=== PATIENT | female | born 1955 | race Caucasian/White ===

== ENCOUNTER 2019-07-17 13:42 | Outpatient (CLI) | payer BC, SELFPAY ==
--- NOTE | ~2019-07-17 | XR_ITS ---
XR abdomen/kub 1V DATE: 07/17/2019 14:20 INDICATION: Gross hematuria TECHNIQUE: AP projection, 2 views COMPARISON: Noncontrast CT abdomen pelvis FINDINGS: Calcifications overlie the left renal silhouette. A solitary right renal calculus noted on CT examination today is not readily evident radiographically. There is abdominal aortic and and iliofemoral arterial calcification. The psoas shadows are intact. No visceromegaly is evident. The bowel gas pattern is nonspecific, with out evidence of obstruction. There is a prominent of fecal material in the right colon. IMPRESSION: Nonspecific abdomen Reviewed, dictated and finalized at Location A. Reviewed, dictated and finalized at location A. IMPRESSION: Nonspecific abdomen
--- NOTE | ~2019-07-17 | CT_ITS ---
EXAMINATION: CT abdomen pelvis wo/w con DATE: 07/17/2019 14:50 INDICATION: Gross hematuria TECHNIQUE: Computed tomography (CT) of the abdomen and pelvis was performed without and subsequently with 130 cc Omnipaque 350 intravenous contrast. Automated exposure control and iterative reconstructi on technique were employed. Exam dose: 551.89 mGy-cm total exam DLP. COMPARISON: 07/17/2019 KUB 08/09/2005 CT abdomen pelvis FINDINGS: The lung bases are clear. No pericardial or pleural effusion. Heart size is within normal r rachana. 1 cm and 5 mm left hepatic cysts. The liver is otherwise unremarkable. No bile duct dilatation. The g allbladder is unremarkable. No pancreatic mass lesion, calcification or ductal dilatation. Normal spl enic size. Normal morphology of the adrenal glands. Approximately 1.9 cm left renal cyst at least one additional very small left renal cyst is suggested. There are at least several probable right renal cysts measuring up to 6.5 mm. There is an approximately 3.8 cm nonobstructing mid right renal calculus. There are numerous left renal calculi, the largest measuring up to approximately 5.5 mm maximal dimen eva on axial views. No ureteral calculi or hydroureteronephrosis. The urinary bladder, uterus and adnexal areas are unremarkable. Normal appendix. Diverticulosis of the colon, no CT evidence of diverticulitis. No bowel obstruction or intraperitoneal free air. There is extensive calcification of the abdominal aorta and iliac and femoral arteries but no aneurys m. No intraperitoneal or retroperitoneal or pelvic mass lesion or adenopathy or ascites. Small fat-containing umbilical hernia. Diffuse osteopenia. There is degenerative change at the apophyseal joints with associated grade 1 anterolisthesis at L4-5 . Severe degenerative disc disease at L5-S1. IMPRESSION: Bilateral nephrolithiasis Hepatic and renal cysts Diverticulosis of the colon Reviewed, dictated and finalized at Location A. Reviewed, dictated and finalized at location A.
[2019-07-17 14:30] LABS: Estimated Glomerular Filt Rate > 60
== END 2019-07-17 13:43 | disposition home or self-care (01) ==
PROVIDERS: PCP Family Medicine; Visit Provider Urology
DX: R31.0 Gross hematuria (principal); N20.0 Calculus of kidney; N28.1 Cyst of kidney, acquired; K76.89 Other specified diseases of liver; K57.90 Diverticulosis of intestine, part unspecified, without perforation or abscess without bleeding
CPT/HCPCS: 36415; 74018; 74178; Q9967

== ENCOUNTER 2019-09-22 09:23 | Outpatient (CLI) | payer BC, SELFPAY ==
--- NOTE | ~2019-09-22 | XR_ITS ---
XR abdomen/kub 1V DATE: 09/22/2019 09:42 INDICATION: Calcium kidney stone follow-up TECHNIQUE: AP projection, 2 views COMPARISON: 07/17/2019 CT abdomen pelvis without and subsequently with IV contrast material 07/17/2019 KUB FINDINGS: There is no significant change of numerous calcifications scattered throughout left kidney. No definite right renal calcified stone is confirmed on this examination. Noncontrast CT abdomen pel vis examination would be more sensitive for detection of urinary tract calculi. The psoas shadows are intact. No visceromegaly is evident. There is no evidence of bowel obstruction. There is degenerative change of the lower thoracic and lumbar spine. Abdominal aortic and iliac and femoral artery calcifications. IMPRESSION: Numerous left renal calcified calculi are again noted. Reviewed, dictated and finalized at Location A. Reviewed, dictated and finalized at location A.
== END 2019-09-22 09:24 | disposition home or self-care (01) ==
PROVIDERS: PCP Family Medicine; Visit Provider Urology
DX: N20.0 Calculus of kidney (principal)
CPT/HCPCS: 74018

== ENCOUNTER 2020-03-27 08:13 | Outpatient (CLI) | payer BC, SELFPAY ==
--- NOTE | ~2020-03-27 | XR_ITS ---
XR abdomen/kub 1V 03/27/2020 08:26 Indication: Kidney stones Procedure: KUB Comparison: 09/22/2019 Findings: There are bilateral renal stones. There are vascular calcifications in the pelvis. Bowel ga s pattern is nonobstructive. Moderate colonic fecal loading. Moderate lumbar spondylosis. No acute os seous abnormality. Impression: 1: Bilateral nephrolithiasis. Reviewed, dictated and finalized at location B. 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
== END 2020-03-27 08:14 | disposition home or self-care (01) ==
LOC: ANHIMG 08:16
PROVIDERS: Visit Provider Urology
DX: N20.0 Calculus of kidney (principal); M47.816 Spondylosis without myelopathy or radiculopathy, lumbar region
CPT/HCPCS: 74018

== ENCOUNTER 2020-10-05 11:13 | Outpatient (CLI) | payer BC, SELFPAY ==
[2020-10-05 11:59] LABS: Alanine Aminotransferase 12 U/L (4-35); Albumin Level 4.3 g/dL (3.5-5.1); Alkaline Phosphatase 76 U/L (38-126); Anion Gap 6 mmol/L (8-16); Aspartate Amino Transferase 17 U/L (14-36); Bilirubin,Total 0.6 mg/dL (0.2-1.3); Blood Urea Nitrogen 11 mg/dL (7-17); Calcium 9.5 mg/dL (8.4-10.2); Carbon Dioxide 29 mmol/L (22-30); Chloride 104 mmol/L (98-107); Cholesterol 191 mg/dL (0-200); Estimated Glomerular Filt Rate > 60; Glucose 99 mg/dL (65-110); HDL Direct 44 mg/dL; Potassium 4.3 mmol/L (3.4-5.0); Sodium 139 mmol/L (137-145); Triglycerides 126 mg/dL (<150)
[2020-10-05 12:10] LABS: LDL Cholesterol Direct 94 mg/dL
== END 2020-10-05 11:14 | disposition home or self-care (01) ==
PROVIDERS: PCP Family Medicine; Visit Provider Physician Assistant
DX: E78.5 Hyperlipidemia, unspecified (principal); I10 Essential (primary) hypertension
CPT/HCPCS: 36415; 80053; 80061

== ENCOUNTER 2021-02-27 12:00 | Outpatient (CLI) | payer BC, SELFPAY ==
--- NOTE | ~2021-02-27 | CT_ITS ---
EXAMINATION:CT lung screening DATE: 02/27/2021 12:10 INDICATION: Personal history of nicotine dependence. Current smoker with 36 pack year history. TECHNIQUE: Computed tomography (CT) of the chest was performed without intravenous contrast. Automate d exposure control and iterative reconstruction technique were employed. The dose-length product (DLP ) was 65.40 mGy-cm. COMPARISON: Chest CT 08/09/2005 FINDINGS: There is mild scarring at the lung apices. There is moderate emphysema. There is an 11 mm p redominantly solid nodule in right upper lobe. There is a 13 mm part solid nodule with 5 mm solid com ponent in left lower lobe. There is a 19 mm cavitary nodule with mildly thickened wall in left upper lobe. There is an 8 mm part solid nodule in right upper lobe. There is a 15 mm nonsolid nodule in lef t lower lobe. No pleural effusion. The heart size is normal. There are coronary artery calcifications . No pericardial effusion. There are multiple stones in left kidney measuring up to 3 mm. There is mi ld thoracic spondylosis. IMPRESSION: 1. Lung-RADS category 4A: Probably suspicious. Noncontrast low-dose chest CT is recommended in 3 leo hs. Reviewed, dictated and finalized at location B. BAG FINISHER IMPRESSION: 1. Lung-RADS category 4A: Probably suspicious. Noncontrast low-dose chest CT is recommended in 3 months.
== END 2021-02-27 12:01 | disposition home or self-care (01) ==
LOC: ANHIMG 12:01
PROVIDERS: PCP Family Medicine; Visit Provider Physician Assistant
DX: Z87.891 Personal history of nicotine dependence (principal); R91.8 Other nonspecific abnormal finding of lung field
CPT/HCPCS: 71271

== ENCOUNTER 2021-03-27 07:57 | Outpatient (CLI) | payer BC, SELFPAY ==
--- NOTE | ~2021-03-27 | XR_ITS ---
EXAMINATION: XR abdomen/kub 1V DATE: 03/27/2021 08:10 INDICATION: Calcium kidney stone, left side. TECHNIQUE: A supine view of the abdomen was obtained. COMPARISON: CT abdomen and pelvis 07/17/2019, abdomen radiographs 03/27/2020 FINDINGS: There are no dilated loops of bowel. There is a moderate volume of stool in the colon. Ther e are greater than 10 stones in left kidney measuring up to 4 mm. IMPRESSION: 1. Left kidney stones. Reviewed, dictated and finalized at location E. 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 Left kidney stones.
== END 2021-03-27 07:58 | disposition home or self-care (01) ==
LOC: ANHIMG 08:00
PROVIDERS: PCP Family Medicine; Visit Provider Urology
DX: N20.0 Calculus of kidney (principal)
CPT/HCPCS: 74018

== ENCOUNTER 2021-04-29 08:36 | Outpatient (CLI) | payer BC, SELFPAY ==
--- NOTE | ~2021-04-29 | CT_ITS ---
EXAMINATION: CT abdomen pelvis wo/w con DATE: 04/29/2021 09:32 INDICATION: Gross hematuria. TECHNIQUE: Computed tomography (CT) of the abdomen and pelvis was performed without and with intraven ous contrast using a total of 130 mL Omnipaque-350 intravenous contrast with a double-bolus technique for simultaneous opacification of the renal parenchyma and renal collecting system. Automated exposu re control and iterative reconstruction technique were employed. The dose-length product was 663.86 m Gy-cm. COMPARISON: CT abdomen and pelvis 07/17/2019 FINDINGS: The visualized portions of the lung bases demonstrate mild atelectasis. No pleural effusion. The hear t size is normal. No pericardial effusion. There are coronary artery calcifications. The liver, gallb ladder, spleen, pancreas, and adrenal glands are normal. There is a 5 mm stone in right kidney. There are greater than 10 stones in left kidney measuring up to 7 mm. The right ureter is not well opacifi ed distally, but is normal. Left ureter is well opacified and is normal. The bladder is normal. There is diverticulosis of the colon without evidence of diverticulitis. There are no dilated loops of bow el. The appendix is normal. There is a left inguinal hernia containing fat. There are no pathological ly enlarged lymph nodes. There is no free intraperitoneal fluid. There is a chronic compression fract ure of L4. There is moderate lumbar spondylosis. IMPRESSION: 1. Bilateral nonobstructing kidney stones. Reviewed, dictated and finalized at location A.
[2021-04-29 09:13] LABS: Estimated Glomerular Filt Rate 56
== END 2021-04-29 08:37 | disposition home or self-care (01) ==
LOC: ANHIMG 08:37
PROVIDERS: PCP Family Medicine; Visit Provider Nurse Practitioner Adult Health
DX: R31.0 Gross hematuria (principal); N20.0 Calculus of kidney
CPT/HCPCS: 74178; Q9967

== ENCOUNTER 2021-05-06 13:41 | Outpatient (CLI) | payer BC, SELFPAY ==
--- NOTE | 2021-05-06 13:48 | ECG_ITS ---
Measurements Intervals [place] Rate: 58 P: 77 CO: 142 QRS: 40 QRSD: 82 T: 69 QT: 405 QTc: 400 Interpretive Statements SINUS BRADYCARDIA POSSIBLE LEFT ATRIAL ENLARGEMENT [-0.1mV P WAVE IN V1/V2] NONSPECIFIC ST ABNORMALITY ABNORMAL ECG NO PREVIOUS ECG AVAILABLE FOR COMPARISON Electronically Signed On 05-06-2021 17:12:38 CDT by Daryn Chris M.D.
[2021-05-06 14:42] LABS: INR 1.1; Prothrombin Time 13.6 Seconds (11.1-14.7)
[2021-05-06 14:43] LABS: Partial Thromboplastin Time 30.3 SECONDS (22.3-36.8)
== END 2021-05-06 13:42 | disposition home or self-care (01) ==
PROVIDERS: Urology; PCP Family Medicine; Visit Provider Urology
DX: Z01.818 Encounter for other preprocedural examination (principal); N20.0 Calculus of kidney; I10 Essential (primary) hypertension; R00.1 Bradycardia, unspecified; Z51.81 Encounter for therapeutic drug level monitoring; Z79.899 Other long term (current) drug therapy
CPT/HCPCS: 36415; 85610; 85730; 87086; 93005

== ENCOUNTER 2021-05-09 02:08 | Day surgery (SDC) | payer BC, SELFPAY ==
[2021-05-02 09:37] VITALS: BMI 22.3
--- NOTE | 2021-05-02 09:45 | PC.NURSE ---
Report to the Outpatient Waiting Room, entrance under the green pavilion located off [facility], at time 0630_ on date _05/09/21 . OR Time: . - You and your visitor will be asked a series of questions to screen for COVID 19 for your protection. - A mask is required within the hospital. Preoperative COVID Testing Requirements: No COVID Test needed if: (proof is required; if not received patient will have Rapid Test prior to entry) - Patient has received COVID Vaccine at least 14 days prior to procedure date or - Patient has positive COVID test result within last 90 days of surgery date. COVID Test needed if above criteria is not met If not COVID vaccinated a COVID test must be conducted within 72 hours of surgery and patient is asked to isolate self from time of testing until procedure. You will go to the [facility] for your COVID testing. The [facility] is located at the corner of [address] [facility]. You will only be called if COVID results are positive and your surgeon may reschedule your elective surgery date. Patients may have clear liquids (water, carbonated beverages, clear teas, apple juice) until 3 hours prior to surgery with a maximum of 20 ounces. - No food from midnight until time of surgery - Infants may have breast milk until 4 hours before surgery, infant formula 6 hours prior to surgery. - Children will be allowed to drink immediately following surgery. If applicable, please bring a bottle or sippy cup to assist with drinking. Juice, water, soda, and popsicles are readily available. For infants on formula, please bring formula the day of surgery. Pacifiers are allowed. Take the following medications with a SIP of water the morning of surgery: _DILTIAZEM Medications to discontinue per physician ___XARELTO Date to take last dose____05/02/21 Please no make-up, nail northern ir[place], hairspray, perfume, deodorant, or body powder the day of surgery. No jewelry (including any body piercings) or valuables the day of surgery, leave them at home. Please take a shower or bath the night before, or the morning of, surgery with an antibacterial soap. Wear comfortable, loose fitting clothing. Children are encouraged to wear pajamas. - Jewelry must be removed prior to entering the operating room. Rings and piercings that are not removed may be cut off. - The hospital will not accept responsibility for valuables. - Please leave all valuables, including medications, at home the day of surgery. If you are going home after surgery, a licensed batch mixing truck driver must drive you home. - NO public transportation without another adult. - We recommend that an adult stay with you for 24 hours following discharge. - We also recommend that you do not drive, make important decision, drink alcoholic beverages, or take any drugs that were not prescribed by your health care provider for at least 24 hours after your discharge time. For Pediatric surgeries, we recommend two adults accompany the child home (only one inside the building at this time). One visitor will be allowed to accompany the patient into the hospital. Patients visitor will be instructed to remain with patient at all times or leave the building. We will allow the visitor to come back to the postoperative area when patient is ready. Follow any additional instructions given to you from your surgeon. Telephone instructions given to ____PARRES and asked if any additional questions and then verbalized understanding. Patient advised to call surgeon office or pre surgery nurse liaison [phone] if any additional questions.
[2021-05-09] VITALS (8 sets, daily range): BP systolic 149–186; BP diastolic 74–104; PULSE 58–66; RESP 14–20; TEMP 36.2–36.4; O2SAT 93–100
--- NOTE | ~2021-05-09 | XR_ITS ---
XR abdomen/kub 1V DATE: 05/09/2021 06:31 INDICATION: Nephrolithiasis. Lithotripsy. TECHNIQUE: Supine AP views of the abdomen and pelvis COMPARISON: 04/27/2021 CT abdomen pelvis FINDINGS: An approximately 4 mm calcified calculus overlies the mid right kidney. There are numerous small stones scattered throughout the left kidney. No apparent ureteral calcified calculus is noted. No evidence of bowel obstruction or intraperitoneal free air. No visceromegaly is evident. There is calcification of the abdominal aorta and iliac arteries. The lung bases are clear. Heart size appears normal. IMPRESSION: Bilateral nephrolithiasis, much more prominent on the left Reviewed, dictated and finalized at Location A. Reviewed, dictated and finalized at location A.
[2021-05-09] MEDS: LACTATED RINGERS 1,000 ML 30 ML IV CONT (07:00)
--- NOTE | 2021-05-09 07:26 | WPDHPUPDATE1 ---
History and Physical Update Update Date/Time: 05/09/21 07:26 History and Physical has been reviewed, including an updated exam of the patient. There are NO changes in the patient's condition. Risks, benefits, and alternatives have been discussed and questions answered. Patient agrees to proceed with procedure. Proceed with cysto, left reanl eswl.
--- NOTE | 2021-05-09 07:57 | WPDANESEPPF ---
Anes - Initial Pre Proc Eval Procedure: Operation Date: 05/09/21 08:30 Proposed Procedures p Left Extracorporeal Shock Wave Lithotripsy, - Roge Rosa MD s Diagnostic Cystoscopy - Roge Rosa MD Date/Time: 05/09/21 07:57 Surgeon: Roge Rosa MD Pre Op Diagnosis: bilat renal stones Patient Data Age: 65 Gender: F Height: 1.64 m Weight: 59.2 kg Last Vital Signs Temp 36.4 C 05/09/21 07:30 Pulse 66 05/09/21 07:30 Resp 16 05/09/21 07:30 BP 149/80 H 05/09/21 07:30 Pulse Ox 97 05/09/21 07:30 Allergies Allergy/AdvReac Type Severity Reaction Status Date / Time No Known Allergies Allergy Mild Verified 05/09/21 07:34 Home Medications Medication Instructions Recorded Confirmed Type diltiazem HCl 240 mg 240 mg PO DAILY 04/16/20 05/09/21 History capsule,extended release 24 hr losartan 100 mg tablet 100 mg PO DAILY 08/16/20 05/09/21 History atorvastatin 10 mg tablet 10 mg PO DAILY #90 tablet 11/14/20 05/09/21 Rx albuterol sulfate 90 mcg/actuation 1 inh INHALATION Q4H PRN #8.5 g 02/24/21 05/09/21 Rx aerosol inhaler nebivolol [Bystolic] 10 mg PO HS 05/02/21 05/09/21 History rivaroxaban 20 mg tablet 20 mg PO DAILY #30 tablet 05/04/21 05/09/21 Rx Patient hx anesthesia problems: none Family hx anesthesia problems: none Results Review: All pre-operative results and documents have been reviewed as part of the pre-operative evaluation. [facility] Past Medical History Medical History CAD (coronary artery disease) Hypertension Kidney stones Myocardial infarction Normal colonoscopy (~2019) Family History Family History Father Alcoholism Daughter Hypertension Son Hypertension Social History Social History Smoking packs per day: 1 Smoking cigarettes per day: 20.0 Years smoked: 40 Smoking pack-years: 40.00 Smoking status: Current every day smoker Tobacco type: cigarettes Alcohol intake: current Alcohol use details: 2 PER YEAR Substance use: former Substance use type: does not use Living arrangements: with family Spiritual care concerns: No Agree to blood products: Yes Anes - Eval Final PreProcedure Day of Procedure 05/09/21 07:57 Patient weight: normal Heart: regular rate and rhythm Lungs: decreased breath sounds Airway: Mallampati scale class II Neurological: alert and oriented Last oral intake: >/= 8 hours ASA classification: III Emergent: no Anesthetic plan: proceed Anesthesia type and monitoring: general LMA and standard monitoring Results Review: All pre-operative results and documents have been reviewed as part of the pre-operative evaluation. Informed Consent: The patient's anesthetic plan and its attendant risks and benefits were discussed with the patient/family/POA. Questions were solicited and answers provided to the satisfaction of the patient/family/POA.
[2021-05-09] MEDS: ceFAZolin 2 GM/D5W 50 ML 2 GM/50 ML BAG IVPB (08:25)
[2021-05-09] MEDS: LIDOCAINE HCL 2% GEL UROJET 10 ML PKG MUCOUS MEM (08:34)
--- NOTE | 2021-05-09 09:01 | W.PM.PROC2 ---
Procedure Note - Detailed Date of Procedure 05/09/21 Pre-op Diagnosis bilat renal stones, hematuria Post-op Diagnosis Same Procedure Performed Flexible cystoscopy, ESWL left renal calculi Surgeon Roge Rosa MD Anesthesia General Description of Procedure Patient is taken the operative suite correctly identified. Once anesthesia was obtained she was frog-legged and prepped and draped usual sterile fashion. Sixteen Luxembourger scope inserted into the urethra. There were no tumors noted. Both ureteral orifices normal anatomic position. Scope was removed. 2% viscous lidocaine was inserted urethra. Patient was then reposition. Patient has a cluster of stones in the left kidney. We started out with the lower pole area. Two and half thousand shocks were given to the various stones in the lower pole. Patient tolerated procedure well without any complications taken recovery stable condition. She will follow up in about 10 days with a KUB. Drains No Packing No Pathology None sent Complications No immediate complications Condition Stable Disposition PACU
--- NOTE | 2021-05-09 11:14 | SUR.PHASEII ---
DR RM WAS CALLED ABOUT RESUMING XERELTO. RESTART ON Wednesday05/11/21.
== END 2021-05-09 10:53 | disposition home or self-care (01) ==
PROVIDERS: PCP Family Medicine; Visit Provider Urology
PROC: (CPT 50590; principal; 2021-05-09 08:30)
PROC: 0TJB8ZZ Inspection of Bladder, Via Natural or Artificial Opening Endoscopic (ICD-10-PCS; CPT 52000; 2021-05-09 08:30)
DX: N20.0 Calculus of kidney (principal); R31.9 Hematuria, unspecified; I10 Essential (primary) hypertension; I25.10 Atherosclerotic heart disease of native coronary artery without angina pectoris; I25.2 Old myocardial infarction; F17.210 Nicotine dependence, cigarettes, uncomplicated; Z79.01 Long term (current) use of anticoagulants; Z79.51 Long term (current) use of inhaled steroids
CPT/HCPCS: 50590; 52000; 74018; A9270; J0690; J1100; J2405; J2704; J7120

== ENCOUNTER 2021-05-28 12:49 | Outpatient (CLI) | payer BC, SELFPAY ==
--- NOTE | ~2021-05-28 | XR_ITS ---
EXAM: XR abdomen/kub 1V HISTORY: BILATERAL RENAL STONES COMPARISON: None available FINDINGS: Clear lung bases. Normal bowel gas pattern. No organomegaly. The calcifications over the k idneys are unchanged given changes in positioning. Regional bones and soft tissues normal for age. IMPRESSION: Stable bilateral nephrolithiasis. Reviewed, dictated and finalized at location K.
--- NOTE | ~2021-05-28 | CT_ITS ---
EXAMINATION: CT diagnostic chest wo con EXAM DATE: 05/28/2021 13:13 INDICATION: J98.4 - Other disorders of lung. Spell RADS category 4A CT in February. TECHNIQUE: Spiral CT of the chest without contrast. Axial, coronal and sagittal images of the chest were reviewed. Coronal maximum intensity pixel images of chest reviewed. The dose-length product ( DLP) for this examination was 147.64 mGy-cm. The exposure was tailored according to patient size (au to mA exposure control), and iterative reconstruction (ASIR) was used as additional dose reduction te chnique. Comparison is made to prior examination from 02/27/2021. FINDINGS: There is moderate emphysema and hyperinflation. Previously described bilateral upper lobe and left lower lobe nodules are unchanged in size, largest in the left upper lobe with cavitation cesar suring about 18 mm. Stability favors postinfectious or postinflammatory etiology and a longer interva l follow-up is recommended. There are no new pulmonary nodules. Tracheobronchial tree is patent. There is no mediastinal, hilar or axillary lymphadenopathy. Ther e are no pleural or pericardial effusions. There is no pneumothorax. Heart normal in size. Ther e is moderate coronary arterial calcification, arterial sclerosis. Scattered left calyceal stones. T here is thoracic spondylosis without osteoblastic or osteolytic lesions identified. IMPRESSION: Lung-RADS category 2, benign appearance or behavior (<1% chance of malignancy); recommend continued LDCT screening in 1 year. Reviewed, dictated and finalized at location B.
[2021-05-28 13:30] VITALS: PULSE 60; O2SAT 95
[2021-05-28 13:33] VITALS: PULSE 92; O2SAT 93
[2021-05-28 13:45] VITALS: PULSE 93; O2SAT 94
--- NOTE | 2021-05-28 13:48 | HOMEO2EVAL ---
Evaluation was performed at [facility] Home Oxygen Evaluation RC: Home Oxygen (O2) Evaluation Start: 05/28/21 13:46 Freq: Status: Active Protocol: RPE Activity Type Activity Date Activity User E-Sign Co-Sign Detail Recorded Client Recorded Date Recorded By Document 05/28/21 13:30 AZAR [email or web address] 05/28/21 13:48 AZRA Document 05/28/21 13:33 AZAR [email or web address] 05/28/21 13:48 AZAR Document 05/28/21 13:45 AZAR [email or web address] 05/28/21 13:48 AZAR 05/28/21 05/28/21 05/28/21 13:30 13:33 13:45 Home O2 Evaluation Test Phase Resting Exercise Resting Oxygen Delivery Room Air Room Air Room Air Pulse Oximetry (90-100 %) 95 93 94 Pulse Rate (60-100 beats/min) 60 92 93 Ambulation Distance (feet) 800 Ambulation Distance (meters) 243.82 Home Oxygen Evaluation Comments NO HOME O2 NEEDED Treatment Charges O2 Evaluation - Inpatient
--- NOTE | 2021-05-28 13:49 | PCRCNOTE ---
HOME O2 EVAL FAXED TO OFFICE STAFF
--- NOTE | 2021-05-28 15:19 | WPDPFTINT ---
PFT Procedure Performed PFT Procedure Performed Spirometry with Pre/Post Bronchodilator Plethysmography (Lung Vol) Diffusing Cap (DLCO) Flow Vol Loop PFT Interpretation This is a pulmonary function test with pre and post-bronchodilator spirometry, plethysmography and diffusing capacity. The test was performed and results interpreted in accordance with the 2019 and 2005 ATS/ERS Task Force guidelines respectively using the Global Lung Function Initiative-2012 reference equations. Patient demonstrated good effort and cooperation. Reproducibility criteria were met. The quality of the pre bronchodilator spirometry maneuver was Grade A and post bronchodilator spirometry maneuver was Grade A. Findings: Spirometry:There is decreased maximal expiratory airflow at all lung volumes with concave expiratory flow tracing. The contour the inspiratory flow tracing is normal. The pre bronchodilator FVC is 2.85 L, 90% predicted. The pre bronchodilator FEV1 is 1.21 L, 49% predicted. The pre bronchodilator FEV1: FVC ratio is 42%. The post bronchodilator FVC is 3.10 L, representing a 9% increase. The post bronchodilator FEV1 is 1.38 L, representing 170 mL increase which corresponds to a 14% increase. The post bronchodilator FEV1: FVC ratio is 45%. Plethysmography: The total lung capacity is 7.58, 146% predicted. The functional residual capacity is 5.70 L, 193% predicted. The residual volume is 4.67 L, 223% predicted. Diffusing capacity: The diffusing capacity unadjusted for hemoglobin and carboxyhemoglobin is 11.0, 51% predicted. The diffusing capacity adjusted for alveolar volume is 2.69, 62% predicted. Impression: There is a severe obstructive abnormality without significant improvement after inhaling a single dose of albuterol As the absolute increase in FEV1 was less than 200 mL. The increase in residual volume is consistent with air trapping from an obstructive abnormality. Hyperinflation is present is demonstrated by the increase in functional residual capacity and total lung capacity and is consistent with an obstructive abnormality. The diffusing capacity unadjusted for hemoglobin and carboxyhemoglobin is moderately decreased and remains mildly decreased when adjusted for alveolar volume. There are no prior studies for comparison
== END 2021-05-28 12:50 | disposition home or self-care (01) ==
PROVIDERS: PCP Family Medicine; Visit Provider Internal Medicine Pulmonary Disease
DX: R06.02 Shortness of breath (principal); J98.4 Other disorders of lung; N20.0 Calculus of kidney; R94.2 Abnormal results of pulmonary function studies
CPT/HCPCS: 71250; 74018; 94060; 94618; 94726; 94729

== ENCOUNTER 2021-06-12 14:40 | Outpatient (CLI) | payer BC, SELFPAY ==
[2021-06-12 15:15] LABS: Creatine Kinase 52 U/L (30-135)
[2021-06-12 16:10] LABS: Rheumatoid Factor < 8.6 IU/ML (<12)
[2021-06-14 15:06] LABS: NIL 0.01 IU/mL; Quantiferon TB Plus, 1T NEGATIVE (NEGATIVE); TB1-NIL 0.01 IU/mL
[2021-06-16 17:46] LABS: ANA Cascade Screen Negative (Negative)
[2021-06-17 12:13] LABS: Anti Cyclic Citrullinated Pept <16 Units (<20)
[2021-06-20 14:13] LABS: ANCA Screen Negative (Negative)
== END 2021-06-12 14:41 | disposition home or self-care (01) ==
LOC: ANHLAB 14:42
PROVIDERS: PCP Family Medicine; Visit Provider Internal Medicine Pulmonary Disease
DX: J98.4 Other disorders of lung (principal); J44.9 Chronic obstructive pulmonary disease, unspecified
CPT/HCPCS: 36415; 82085; 82550; 86036; 86038; 86200; 86331; 86430; 86480; 86606; 86609

== ENCOUNTER 2021-11-27 13:21 | Outpatient (CLI) | payer BC, SELFPAY ==
--- NOTE | ~2021-11-27 | CT_ITS ---
EXAMINATION: CT diagnostic chest wo con DATE: 11/27/2021 13:51 INDICATION: Cavitary lesion of the lung TECHNIQUE: Computed tomography (CT) of the chest was performed without intravenous contrast. The dose -length product (DLP) was 67.08 mGy-cm. Automated exposure control and iterative reconstruction techn ique were employed. COMPARISON: 05/28/2021, 02/27/2021 FINDINGS: There is moderate emphysema. There is a stable 11 mm nodule of the right upper lobe which i s predominantly solid. There is a stable subsolid 11 mm nodule in the medial aspect of the right uppe r lobe on image 66. There is 1.9 cm cavitary nodule of the left lower lobe. There is a 1.9 cm groundg lass nodule of the left lower lobe. There is an approximately 2.6 cm cystic nodule with thin peripher al solid component in the left upper lobe which is not significantly changed. No pleural effusion or pneumothorax. No pathologically enlarged thoracic lymph nodes are identified. The heart size is jo l. Calcified coronary artery atherosclerosis is noted. Nonobstructing stones are present in the left kidney. There is mild thoracic spondylosis. IMPRESSION: 1. Lung-RADS category 2: Benign appearance or behavior. Continue annual screening with noncontrast lo w-dose chest CT in 12 months. Reviewed, dictated and finalized at location F. IMPRESSION: 1. Lung-RADS category 2: Benign appearance or behavior. Continue annual screeni ng with noncontrast low-dose chest CT in 12 months.
== END 2021-11-27 13:22 | disposition home or self-care (01) ==
PROVIDERS: PCP Family Medicine; Visit Provider Internal Medicine Pulmonary Disease
DX: J98.4 Other disorders of lung (principal); R91.8 Other nonspecific abnormal finding of lung field
CPT/HCPCS: 71250

== ENCOUNTER 2022-03-19 12:46 | Outpatient (CLI) | payer BC, SELFPAY ==
[2022-03-25 04:47] LABS: Alpha-1-Antitrypsin, QN 171 mg/dL (83-199)
== END 2022-03-19 12:47 | disposition home or self-care (01) ==
LOC: ANHLAB 12:47
PROVIDERS: PCP Family Medicine; Visit Provider Nurse Practitioner Family
DX: Z14.8 Genetic carrier of other disease (principal)
CPT/HCPCS: 36415; 82103

== ENCOUNTER 2022-11-30 10:44 | Outpatient (CLI) | payer BC, SELFPAY ==
--- NOTE | ~2022-11-30 | CT_ITS ---
CT Scan of the Chest without Contrast: Clinical Indication: Lung cancer screening, personal history of nicotine dependence Technique: Contiguous sections were acquired throughout the chest without intravenous contrast. Dose reduction technique was used on this scan by utilizing automated exposure control and iterative recon struction technique. The dose-length product (DLP) was 68.85 mGy-cm. COMPARISON: 11/27/2021, 02/27/2021 Findings: There is no evidence of any significant mediastinal, hilar or axillary lymphadenopathy. Coronary angel ry calcification are present. There is no evidence of pleural or pericardial effusion. Irregular semisolid, bubbly lesion at the peripheral right lung apex is increased in size from prior exam, now measuring up to approximately 2.4 cm in maximum diameter. Semisolid nodule in the anteromed ial, inferior right upper lobe is similar to prior exam, measuring 1 cm in diameter (axial image 71). 2.2 cm cavitary, semisolid nodule in the left upper lobe near the perihilar region is similar to dominic or exam. Probable subtle groundglass and cavitary lesions in the left lower lobe are unchanged. Small groundglass lesion in the superior segment left lower lobe is unchanged. There is moderate emphysema . Images through the upper abdomen reveal no abnormalities. Impression: BI-RADS 4A: Suspicious. 3 month follow-up CT advised, given increase in size of right apical lesion. Multiple groundglass, cavitary, and/or semisolid lesions in the lungs, as detailed above. Lesion at t he peripheral right lung apex increase in size, remaining lesions are essentially unchanged. Findings could reflect multifocal VIRGIE. Reviewed, dictated and finalized at location M. Impression: BI-RADS 4A: Suspicious. 3 month follow-up CT advised, given increase in size of right apical lesion. Multiple groundglass, cavitary, and/or semisolid lesions in the lungs, as detai led above. Lesion at the peripheral right lung apex increase in size, remaining lesions are essentially unchanged. Findings could reflect multifocal VIRGIE.
== END 2022-11-30 10:45 | disposition home or self-care (01) ==
PROVIDERS: PCP Family Medicine; Visit Provider Nurse Practitioner Family
DX: Z12.2 Encounter for screening for malignant neoplasm of respiratory organs (principal); R91.8 Other nonspecific abnormal finding of lung field; Z87.891 Personal history of nicotine dependence
CPT/HCPCS: 71271

== ENCOUNTER 2023-03-09 09:51 | Outpatient (CLI) | payer BC, SELFPAY ==
--- NOTE | ~2023-03-09 | DEXA_ITS ---
Bone Density Report Name: BENJY MENDOZA Age: 67 Sex: Female Ethnicity: White Date of : 1955 Indication: postmenopausal; screening for osteoporosis; Referring Provider: THERESE HSIEH Study: Bone densitometry was performed. Exam Date: March 09, 2023 Accession number: [id number] Bone Density: Region BMD T-score Z-score Classification AP Spine(L1-L4) 0.925 -1.1 0.7 Osteopenia Femoral Neck (Left) 0.487 -3.3 -1.7 Osteoporosis Total Hip (Left) 0.638 -2.5 -1.2 Osteoporosis Femoral Neck (Right) 0.461 -3.5 -2.0 Osteoporosis Total Hip (Right) 0.632 -2.5 -1.3 Osteoporosis Total Hip Mean 0.635 -2.5 -1.3 Osteoporosis World Health Organization criteria for BMD impression classify patients as: Normal (T-score at or above -1.0), Osteopenia (T-score between -1.0 and -2.5), or Osteoporosis (T-score at or below -2.5). 10-year Fracture Risk: FRAX not reported because: Some T-score for Spine Total or Hip Total or Femoral Neck at or below -2.5 Clinical Information Provided by Patient: Smokes Patient maximum height was 65 Menopause Age: 34 No regular weight bearing exercise Drinks caffeinated beverages Onset of menses at age 18 Number of children 2 Impression: The patient has osteoporosis, based on the Right Femoral Neck T-score. The patient has risk factors, including: smoking. Discussion: HIGH RISK OF FRACTURE. BONE DENSITY IS UNDESIRABLY LOW AT ONE OR MORE SKELETAL SITES, CONSISTENT WITH OSTEOPOROSIS. ALSO, BONE DENSITY IS LOWER THAN EXPECTED FOR AGE AND SEX AT ONE OR MORE SKELETAL SITES; RECOMMEND A DILIGENT SEARCH FOR SECONDARY CAUSES OF BONE LOSS. This patient's lowest T-score meets the World Health Organization's (WHO) criteria for osteoporosis at one or more sites (T-score -2.5 or below). In untreated patients, the risk of osteoporotic fracture increases approximately two-fold for each 1.0 SD decrease in T-score. Low bone density is not the only risk factor for fracture; also consider factors such as patient's age, frailty or poor health, risk of falling, risk of injury, previous osteoporotic fracture, family history of osteoporosis, cigarette smoking, low body weight, etc. Not everyone with low bone mineral density has osteoporosis; osteomalacia and other metabolic bone disorders should also be considered. Patients who have osteoporosis should be evaluated for specific diseases and conditions (secondary causes) that may cause or contribute to bone loss. The [place] [employer] Endocrinologists (AACE) and National Osteoporosis Foundation (NOF) recommend pharmacologic intervention for all postmenopausal women whose T-score is in this range. Also, this patient's bone mineral density is below the range considered normal for healthy age-, sex-, and race-matched controls at least one site (Z-s
--- NOTE | ~2023-03-09 | CT_ITS ---
CT Scan of the Chest without Contrast: Clinical Indication: Nonspecific abnormal finding of lung field Technique: Contiguous sections were acquired throughout the chest without intravenous contrast. Dose reduction technique was used on this scan by utilizing automated exposure control and iterative recon struction technique. The dose-length product (DLP) was 156.92 mGy-cm. COMPARISON: 11/30/2022 Findings: There is no evidence of any significant mediastinal, hilar or axillary lymphadenopathy. The mediastin al soft tissues appear normal. There is no evidence of pleural or pericardial effusion. Moderate severe emphysema present. There is a stable irregular nonsolid lesion at the peripheral righ t lung apex. There is a stable probable cavitary irregular thin-walled lesion in the right upper lobe (axial image 51). Stable small irregular bubbly lesion in the anterior medial right upper lobe (axia l image 67). There are stable very subtle groundglass opacities in the superior segment left lower lo be and in the more inferior left lower lobe. Images through the upper abdomen reveal bilateral nonobstructing renal stones. Impression: Stable nonsolid, cavitary, and groundglass lesions in the lungs, as detailed above. Findings remain i ndeterminate, but multifocal bronchoalveolar cell carcinoma is a consideration. Moderate to advanced emphysema. Reviewed, dictated and finalized at location M. LESS TUBE MILL OPERATOR Impression: Stable nonsolid, cavitary, and groundglass lesions in the lungs, as detailed ab ove. Findings remain indeterminate, but multifocal bronchoalveolar cell carcino ma is a consideration. Moderate to advanced emphysema.
[2023-03-09 11:06] LABS: Basophils Absolute Auto 0.1 K/mm3 (0.0-0.1); Eosinophils Absolute Auto 0.2 K/mm3 (0-0.3); Eosinophils Percent Auto 2.3 % (0-4.4); Hematocrit 50.8 % (37.0-47.0); Hemoglobin 16.7 g/dL (12.0-15.0); Immature Granulocyte Absolute 0.03 K/mm3 (0.00-0.031); Immature Granulocyte Percent A 0.3 % (0-0.5); Lymphocytes Absolute Auto 2.67 K/mm3 (0.9-3.2); Lymphocytes Percent Auto 30.9 % (18.3-44.2); Mean Corpuscular HGB Conc 32.9 g/dl (32-36); Mean Corpuscular Hemoglobin 31.6 pg (26-34); Mean Corpuscular Volume 96.2 fl (80-100); Mean Platelet Volume 10.6 fl (7.4-10.4); Monocytes Absolute Auto 0.6 K/mm3 (0.1-0.6); Monocytes Percent Auto 7.3 % (2.6-8.5); Neutrophils Percent Auto 58.2 % (45.5-73.1); Platelet Count Result 260 k/mm3 (150-375); Red Blood Count 5.28 M/mm3 (4.2-5.4); Red Cell Distribution Width 13.8 % (11.5-14.5); White Blood Count 8.6 K/mm3 (4.5-10.0)
[2023-03-09 11:21] LABS: Alanine Aminotransferase 21 U/L (6-35); Albumin Level 4.3 g/dL (3.5-5.1); Alkaline Phosphatase 85 U/L (38-126); Anion Gap 7 mmol/L (8-16); Aspartate Amino Transferase 23 U/L (14-36); Bilirubin,Total 0.5 mg/dL (0.2-1.3); Blood Urea Nitrogen 16 mg/dL (7-17); Calcium 9.4 mg/dL (8.4-10.2); Carbon Dioxide 28 mmol/L (22-30); Chloride 105 mmol/L (98-107); Cholesterol 201 mg/dL (0-200); Estimated Glomerular Filt Rate > 60; Glucose 105 mg/dL (65-110); HDL Direct 48 mg/dL; Potassium 4.3 mmol/L (3.4-5.0); Sodium 140 mmol/L (137-145); Triglycerides 94 mg/dL (<150)
[2023-03-09 11:32] LABS: LDL Cholesterol Direct 126 mg/dL
[2023-03-09 11:52] LABS: Vitamin D 25 Hydroxy 26.8 ng/mL
== END 2023-03-09 09:52 | disposition home or self-care (01) ==
PROVIDERS: PCP Family Medicine; Visit Provider Nurse Practitioner Family
DX: Z00.00 Encounter for general adult medical examination without abnormal findings (principal); J43.9 Emphysema, unspecified; M81.0 Age-related osteoporosis without current pathological fracture; E11.9 Type 2 diabetes mellitus without complications; R53.83 Other fatigue; E78.2 Mixed hyperlipidemia; E55.9 Vitamin D deficiency, unspecified; Z78.0 Asymptomatic menopausal state; R91.8 Other nonspecific abnormal finding of lung field
CPT/HCPCS: 36415; 71250; 77080; 80053; 80061; 82306; 84443; 85025

== ENCOUNTER 2023-03-29 11:10 | Outpatient (CLI) | payer BC, SELFPAY ==
--- NOTE | ~2023-03-29 | XR_ITS ---
Clinical Indication: COPD PA and lateral views of the chest: Comparison: 05/17/2015 Findings: The lungs are clear, without evidence of focal consolidation or pleural effusion. Cardiome diastinal silhouette is within normal limits. Bones and soft tissues are unremarkable. Impression: Clear lungs. Probable COPD. Reviewed, dictated and finalized at location . A PROMOTER Impression: Clear lungs. Probable COPD.
[2023-04-09 15:37] LABS: H Band Histoplasma Negative (Negative); M Band Histoplasma Negative (Negative)
== END 2023-03-29 11:11 | disposition home or self-care (01) ==
PROVIDERS: PCP Family Medicine; Visit Provider Nurse Practitioner Family
DX: R91.8 Other nonspecific abnormal finding of lung field (principal)
CPT/HCPCS: 36415; 71046; 86606; 86698

== ENCOUNTER 2023-04-19 12:16 | Outpatient (CLI) | payer BC, SELFPAY ==
--- NOTE | ~2023-04-19 | XR_ITS ---
EXAMINATION: XR chest 2V DATE: 04/19/2023 12:33 INDICATION: Nonspecific abnormal finding of lung field TECHNIQUE: PA and lateral views of the chest were obtained. COMPARISON: Chest radiograph dated 03/29/2023 FINDINGS: Again seen is hyperexpansion of lungs with flattening of the diaphragm consistent with emphysema bett er appreciated on prior CT. No significant change in biapical pleural-parenchymal scarring. Also unch anged is a small region of reticular opacities at the lateral right apex and subtle left perihilar ca vitary lesion with subtle irregular peripheral rim. No new airspace opacities, pulmonary edema, pleur al effusion or pneumothorax. The cardiomediastinal silhouette is normal. Moderate thoracic spondylosi s. IMPRESSION: 1. No acute cardiopulmonary disease. 2. Emphysema with chronic unchanged subtle cavitary lesion in the left perihilar region and chronic s ubtle reticular opacity lateral right apex. Recommend continued low-dose noncontrast chest CT follow- up in [address] dated 03/09/2023. Reviewed, dictated and finalized at location A. TRAPPER IMPRESSION: 1. No acute cardiopulmonary disease. 2. Emphysema with chronic unchanged subtle cavitary lesion in the left perihila r region and chronic subtle reticular opacity lateral right apex. Recommend con tinued low-dose noncontrast chest CT follow-up in [address] dated .
[2023-04-19 13:43] LABS: Appearance Urine Clear (Clear); Bacteria Urine 1+ /hpf; Bilirubin Urine Negative (Negative); Blood Urine 3+ (Negative); Color Urine Yellow (Yellow); Glucose Urine UA Negative (Negative); Ketones Urine Negative (Negative); Leukocyte Esterase Ur 1+ LEU/UL (NEGATIVE); Nitrate Urine Negative (Negative); Non Pathogenic Casts 0-2; Protein Urine 1+ mg/dL (Negative); RBC Urine >100 /hpf (0-2); Specific Grav Ur 1.014 (1.001-1.035); Squamous Epithelial Cell Urine Occasional /hpf (Few); WBC Urine 21-50 /hpf (0-3)
[2023-04-19 13:44] LABS: Add Urine Microscopic? YES
[2023-04-19 14:10] LABS: Albumin Level 4.3 g/dL (3.5-5.1); Anion Gap 7 mmol/L (8-16); Blood Urea Nitrogen 15 mg/dL (7-17); Calcium 9.6 mg/dL (8.4-10.2); Carbon Dioxide 28 mmol/L (22-30); Chloride 105 mmol/L (98-107); Estimated Glomerular Filt Rate > 60; Glucose 101 mg/dL (65-110); Phosphorus 3.4 mg/dL (2.5-4.5); Potassium 3.5 mmol/L (3.4-5.0); Sodium 140 mmol/L (137-145); Uric Acid 4.1 mg/dL (2.5-7.5)
== END 2023-04-19 12:17 | disposition home or self-care (01) ==
PROVIDERS: PCP Family Medicine; Referring Provider Nurse Practitioner Family; Visit Provider Internal Medicine Nephrology
DX: R91.8 Other nonspecific abnormal finding of lung field (principal); N20.0 Calculus of kidney; J43.9 Emphysema, unspecified
CPT/HCPCS: 36415; 71046; 80069; 81001; 84550

== ENCOUNTER 2023-07-02 11:40 | Outpatient (CLI) | payer BC, SELFPAY ==
[2023-07-07 08:30] LABS: Reference Lab Test Result Negative
== END 2023-07-02 11:41 | disposition home or self-care (01) ==
PROVIDERS: PCP Family Medicine; Visit Provider Nurse Practitioner Family
DX: J44.9 Chronic obstructive pulmonary disease, unspecified (principal); R91.8 Other nonspecific abnormal finding of lung field; J98.4 Other disorders of lung
CPT/HCPCS: 36415

== ENCOUNTER 2023-08-24 09:46 | Outpatient (CLI) | payer BC, SELFPAY ==
--- NOTE | ~2023-08-24 | CT_ITS ---
CT Scan of the Chest without Contrast: Clinical Indication: Abnormal finding of lung field Technique: Contiguous sections were acquired throughout the chest without intravenous contrast. Dose reduction technique was used on this scan by utilizing automated exposure control and iterative recon struction technique. The dose-length product (DLP) was 68.14 mGy-cm. COMPARISON: 03/09/2023 Findings: There is no evidence of any significant mediastinal, hilar or axillary lymphadenopathy. The mediastin al soft tissues appear normal. There is no evidence of pleural or pericardial effusion. Moderate evidence of emphysema present. Stable irregular subsolid lesion at the peripheral right uppe r lobe. Pseudocavitary versus cavitary lesion in the left upper lobe measuring 2.5 cm in diameter, pr obably minimally increased from prior exam. Additional left lower pseudocavitary lesion is unchanged (axial image 85). Stable additional small bowel lesions in the medial right upper lobe. Images through the upper abdomen reveal nonobstructing left renal stones. Impression: Semisolid/irregular cavitary or pseudocavitary lesions bilaterally, as detailed above. Largest lesion in the left upper lobe measures 2.5 cm, probably minimally increased from prior exam. Additional les ions are essentially unchanged. Moderate emphysema. Reviewed, dictated and finalized at location M. Impression: Semisolid/irregular cavitary or pseudocavitary lesions bilaterally, as detailed above. Largest lesion in the left upper lobe measures 2.5 cm, probably minimal ly increased from prior exam. Additional lesions are essentially unchanged. Moderate emphysema.
== END 2023-08-24 09:47 | disposition home or self-care (01) ==
LOC: ANHIMG 09:48
PROVIDERS: PCP Family Medicine; Visit Provider Nurse Practitioner Family
DX: R91.8 Other nonspecific abnormal finding of lung field (principal); J43.9 Emphysema, unspecified
CPT/HCPCS: 71250

== ENCOUNTER 2024-02-17 10:13 | Outpatient (CLI) | payer BC, SELFPAY ==
--- NOTE | ~2024-02-17 | CT_ITS ---
EXAMINATION: CT diagnostic chest wo con DATE: 02/17/2024 11:21 INDICATION: R91.8 - Other nonspecific abnormal finding of lung field TECHNIQUE: Computed tomography (CT) of the chest was performed without intravenous contrast. Addition al 3D reconstructions utilizing coronal maximum intensity projection (MIP) were performed. Automated exposure control and iterative reconstruction technique were employed. The dose-length product was 15 1.70 mGy-cm. COMPARISON: 08/24/2023 and 03/09/2023 FINDINGS: Moderate emphysema. There is approximately 3 cm region of septal thickening at the lateral apical seg ment of the right upper lobe with 1.4 cm region in the medial anterior segment of the right upper lob e. There is some additional septal line thickening at the periphery of regions of more prominent cyst ic lung disease measuring 3 cm in the perihilar junction of the left upper lobe and lingula and 2.5 c m in the lateral basilar segment of the left lower lobe. Finally there are couple unchanged ill-defin ed 1-2 cm diameter regions of groundglass opacity in the superior segment of the left lower lobe. The se all without appreciable interval change since 03/09/2023. No new or enlarging lesions identified. N o pulmonary edema or pleural effusion. Heart size is normal. Atherosclerotic coronary artery calcific location. No pericardial effusion. Thoracic aorta is normal in caliber. No pathologically enlarged t horacic lymphadenopathy. Bilateral nonobstructing nephrolithiasis. Moderate thoracic spondylosis. IMPRESSION: 1. Moderate emphysema stable appearance of nonsolid groundglass lesions were irregular septal line th ickening at the periphery of a focal cystic lung disease in both lungs with multiplicity and stabilit y favoring sequela of chronic infection over multifocal bronchoalveolar carcinoma. Recommend continue d CT follow-up. Reviewed, dictated and finalized at location B. H BREAKER IMPRESSION: 1. Moderate emphysema stable appearance of nonsolid groundglass lesions were ir regular septal line thickening at the periphery of a focal cystic lung disease in both lungs with multiplicity and stability favoring sequela of chronic infec tion over multifocal bronchoalveolar carcinoma. Recommend continued CT follow-u p.
== END 2024-02-17 10:14 | disposition home or self-care (01) ==
LOC: ANHIMG 10:17
PROVIDERS: PCP Family Medicine; Visit Provider Nurse Practitioner Family
DX: R91.8 Other nonspecific abnormal finding of lung field (principal); J43.9 Emphysema, unspecified
CPT/HCPCS: 71250

== ENCOUNTER 2024-05-24 12:36 | Outpatient (CLI) | payer BC, SELFPAY ==
--- NOTE | ~2024-05-24 | XR_ITS ---
EXAM/ PROCEDURE: XR hip BI 2V w AP pelvis - 05/24/2024 12:50 CDT HISTORY: 68 years old Female with fall on hips COMPARISON: None available TECHNIQUE: 6 view(s) FINDINGS/ IMPRESSION: There are no fractures or dislocations.Joint space narrowing, subchondral sclerosis, subchondral cyst formation and osteophyte formation, compatible with mild to moderate osteoarthritis. Reviewed, dictated and finalized at location A.
--- OUTSIDE RECORDS SUMMARY | 2024-05-24 13:42 | XMS_ITS | Referral Summary ---
Author Organization [facility] Address [address] [place] [address] Care Team Providers Care Photograph Editor Name Role Phone Kevin Sheets MD Unavailable [phone] Lulu Benz MD Primary Care Provider [phone] Allergies Active Allergy Reactions Criticality Noted Date Comments Amiloride Hives Medium 12/17/2021 Lisinopril Hives Medium 12/17/2021 Losartan Hives Medium 12/17/2021 Tramadol Hives Medium 12/17/2021 Medications rivaroxaban (XARELTO) 20 mg tablet 1 tablet (20 mg total) daily Active Stiolto Respimat 2.5-2.5 mcg/actuation inhaler Inhale 1 puff 2 (two) times a day 2 Active amLODIPine (NORVASC) 5 mg tablet Take 1 tablet (5 mg total) by mouth daily 90 tablet 3 4 Active dronedarone (MULTAQ) 400 mg tablet Take 1 tablet (400 mg total) by mouth 2 (two) times a day with meals 180 tablet 3 4 Active atorvastatin (LIPITOR) 20 mg tablet Take 1 tablet (20 mg total) by mouth nightly 90 tablet 5 08/22/19 25 Active atorvastatin (LIPITOR) 20 mg tablet TAKE 1 TABLET(20 MG) BY MOUTH EVERY NIGHT 90 tablet 3 4 05/24/19 25 Discontinued Active Problems Problem Noted Date Diagnosed Date Hyperlipidemia 07/18/2021 Current use of detention anticoagulation 022 Essential hypertension 07/24/2019 Assessment & Plan (07/24/2019 2:00 PM CDT): Will increase Hydralazine to 100mg BID Atrial flutter (CMS/HCC) 09/03/2018 Overview (09/05/2018): Added automatically from request for surgery [id number] Social History Tobacco Use Types Packs/Day Years Used Date Smoking Tobacco: Every Day Cigarettes Smokeless Tobacco: Never Tobacco Cessation:Ready to Q uit: Not Asked; Counseling Given: Not Answered Alcohol Use Standard Drinks/Week Comments Not Currently 0 (1 standard drink = 0.6 oz pur e alcohol) PHQ-2 Answer Date Recorded PHQ-2 Score 0 10/08/2018 Personal Safety Answer Date Recorded Getting School Help Needed Not on file 02/19 Comments No Sex and Gender Information Value Date Recorded Sex Assigned at Not on file 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 Gender Identity Not on file Sexual Orientation Not on file Last Filed Vital Signs Vital Sign Reading Time Taken Comments Blood Pressure 148/82 09/15/2023 9:31 AM CDT Pulse 79 09/15/2023 9:31 AM CDT Temperature 36.4 C (97.5 F) 07/05/2019 10:49 AM CDT Respiratory Rate 18 09/15/2023 9:31 AM CDT Oxygen Saturation 97% 09/15/2023 9:31 AM CDT Inhaled Oxygen Concentration - - Weight 56.7 kg (125 lb) 09/15/2023 9:31 AM CDT Height 165.1 cm (5' 5 ) 09/15/2023 9:31 AM CDT Body Mass Index 20.8 09/15/2023 9:31 AM CDT Plan of Treatment Not on file Insurance [facility] [employer] Advance Directives For more information, please contact: [phone] * Full Code (Latest Code Status on File) Date Activated Date Inactivated Comments 09/03/2018 10:40 PM 09/06/2018 7:28 PM * Full Code Date Activated Date Inactivated Comments 09/03/2018 7:51 PM 09/03/2018 10:40 PM Care Teams Photograph Editor Relationship Specialty Start Date End Date Lulu Benz MD PCP - General Family Medicine 07/12/20 Kevin Sheets MD Consulting Physician Cardiology 09/06/18
--- OUTSIDE RECORDS SUMMARY | 2024-05-24 13:42 | XMS_ITS | Clinical Summary ---
Author Organization [facility] Address [address] [place] [id number] Phone Care Team Providers Care Dinkey Engine Mechanic Name Role Phone Taye Ko MD Primary Care Provider [phone] Allergies Active Allergy Reactions Criticality Noted Date Comments Amiloride Hives 12/17/2021 Lisinopril Hives 12/17/2021 Losartan Hives 12/17/2021 Tramadol Hives 12/17/2021 Medications albuterol HFA (PROVENTIL HFA) 108 (90 Base) MCG/ACT inhaler INHALE 1 PUFF BY MOUTH EVERY 4 HOURS NEEDED FOR SHORTNESS OF BREATH OR WHEEZING 2 Active dilTIAZem CD (CARDIZEM CD) 240 MG 24 hr capsule Take by mouth 1 (one) time each day 2 Active nebivolol (BYSTOLIC) 10 MG tablet Take 1 tablet by mouth 1 (one) time each day 1 Active Xarelto 20 MG tablet TAKE 1 TABLET BY MOUTH EVERY DAY WITH EVENIKNG MEAL 2 Active tiotropium-olod aterol (STIOLTO RESPIMAT) 2.5-2.5 MCG/ACT aerosol solution inhaler Inhale 2 Inhalation daily Active atorvastatin (LIPITOR) 20 MG tablet 2 Active Active Problems Problem Noted Date Diagnosed Date Essential hypertension 06/16/2021 Calculus of kidney 06/16/2021 Chronic obstructive pulmonary disease 06/16/2021 Coronary arteriosclerosis 06/16/2021 Atrial flutter 09/03/2018 Overview (06/16/2021): Added automatically from request for surgery [id number] Immunizations Immunization Administration Dates Next Due Influenza LAIV (Nasal) 12/17/2021(Deferred: Teresa ent Refused) Family History Medical History Relation Comments Kidney stone Neg Hx Social History Tobacco Use Types Packs/Day Years Used Date Smoking Tobacco: Light Smoker Smokeless Tobacco: Never Alcohol Use Standard Drinks/Week Comments Yes 0 (1 standard drink = 0.6 oz pur e alcohol) rare Comments Unknown Sex and Gender Information Value Date Recorded Sex Assigned at Not on file Legal Sex Female 1:07 PM MDT Gender Identity Not on file Sexual Orientation Not on file Last Filed Vital Signs Vital Sign Reading Time Taken Comments Blood Pressure 130/70 12/17/2021 9:39 AM CDT Pulse 60 12/17/2021 9:39 AM CDT Temperature 36 C (96.8 F) 12/17/2021 9:39 AM CDT Respiratory Rate - - Oxygen Saturation - - Inhaled Oxygen Concentration - - Weight 59.9 kg (132 lb) 12/17/2021 9:39 AM CDT Height 170.2 cm (5' 7 ) 12/17/2021 9:39 AM CDT Body Mass Index 20.67 12/17/2021 9:39 AM CDT Plan of Treatment Health Maintenance Due Date Last Done Comments Pneumococcal PPSV23/PCV13 65 + Years / High and Highest Risk (1 of 5 - PCV) 1976 Influenza Vaccine (Season Ended) 2024 Insurance Care Teams Dinkey Engine Mechanic Relationship Specialty Start Date End Date Taye Ko MD PCP - General Family Medicine 05/22/21
--- OUTSIDE RECORDS SUMMARY | 2024-05-24 13:42 | XMS_ITS | Clinical Summary ---
Author Organization [facility] Address [address] [place] [address] Care Team Providers Care Keno Writer Name Role Phone Kevin Sheets MD Unavailable [phone] Lulu Benz MD Primary Care Provider [phone] Allergies Active Allergy Reactions Criticality Noted Date [...] Diagnosed Date Hyperlipidemia 07/18/2021 Current use of residential anticoagulation 022 Essential hypertension 07/24/2019 Assessment & Plan (07/24/2019 2:00 PM CDT): Will increase Hydralazine to 100mg BID Atrial flutter (CMS/HCC) 09/03/2018 Overview (09/05/2018): Added automatically from request for surgery [id number] Surgical History Surgery Date Site/Laterality Comments CARDIAC CATHETERIZATION 02/15/2018 - 02/14/2019 Medical History Medical History Date Comments Hyperlipidemia Hypertension CHF (congestive heart failure) (HCC) Ventricular tachycardia (HCC) Family History Medical History Relation Name Comments No Known Problems Father No Known Problems Mother Hypertension Other Relation Name Status Comments Father Mother Other Social History Tobacco Use Types Packs/Day Years [...] on file 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 Gender Identity Not on file Sexual Orientation Not on file Obstetrics History Last Filed Vital Signs Vital Sign Reading [...] 09/15/2023 9:31 AM CDT Plan of Treatment Health Maintenance Due Date Last Done Comments Breast Cancer Screening-Mammogram 1955 Colon Cancer Screening-Colonoscopy 1955 Fall Risk Assessment 1955 Hepatitis C Screening 1955 Osteoporosis Screening-Bone Density Scan 1955 DTaP/Tdap/Td Vaccine (1 - Tdap) 1968 Hepatitis B Screening 07/23/1975 Pneumococcal vaccine 65+ (1 of 2 - PCV) 1976 Zoster Vaccine (1 of 2) 07/23/2007 Depression Screening 09/04/2019 09/03/2018, 09/04/19 19 Well Visit 65+ 2022 Influenza Vaccine (Season Ended) 2024 Insurance [facility] Advance Directives For more information, please contact: [phone] * Full Code (Latest Code Status on File) Date Activated Date Inactivated Comments 09/03/2018 10:40 PM 09/06/2018 7:28 PM * Full Code Date Activated Date Inactivated Comments 09/03/2018 7:51 PM 09/03/2018 10:40 PM Care Teams Keno Writer Relationship Specialty Start Date End Date Lulu Benz MD PCP - General Family Medicine 07/12/20 Kevin Sheets MD Consulting Physician Cardiology 09/06/18
--- OUTSIDE RECORDS SUMMARY | 2024-05-24 13:42 | XMS_ITS | Clinical Summary ---
Author Organization [facility] Address [address] [address] Phone Care Team Providers Care Supervising Bailiff Name Role Phone Lulu Benz MD Primary Care Provider [phone] Allergies Active Allergy Reactions Criticality Noted Date Comments Amiloride Hives Medium 12/17/2021 Lisinopril Hives Medium 12/17/2021 Losartan Hives Medium 12/17/2021 Tramadol Hives Medium 12/17/2021 Medications Xarelto 20 MG Tablet TAKE 1 TABLET BY MOUTH DAILY WITH EVENING MEAL Active Stiolto Respimat 2.5-2.5 MCG/ACT Aerosol Solution INHALE 1 PUFF BY MOUTH TWICE DAILY Active atorvastatin (LIPITOR) 20 MG Tablet Take 20 mg by mouth. 2 Active albuterol 108 (90 Base) MCG/ACT Aerosol Solution INHALE 1 PUFF BY MOUTH EVERY 4 HOURS NEEDED FOR SHORTNESS OF BREATH OR WHEEZING 2 Active dronedarone (MULTAQ) 400 MG Tablet Take 1 Tablet by mouth 2 times daily (with meals). 180 Tablet 4 Active amLODIPine (NORVASC) 5 MG Tablet Take 1 Tablet by mouth daily. 90 Tablet 4 Active Active Problems Problem Noted Date Diagnosed Date Sinus bradycardia 07/15/2023 COPD (chronic obstructive pulmonary disease) Atrial fibrillation with RVR 07/13/2023 Chest pain 07/13/2023 Acute kidney injury 07/13/2023 Dehydration 07/13/2023 Hypertension 07/13/2023 Hyperlipidemia 07/13/2023 Chronic atrial fibrillation 07/13/2023 Tobacco dependence 07/13/2023 BRBPR (bright red blood per rectum) 09/10/2016 Family History Medical History Relation Name Comments Other-comment Mother Suicide Hypertension Sister Hypertension Son Relation Name Status Comments Father Mother Sister Son Social History Tobacco Use Types Packs/Day Years Used Date Smoking Tobacco: Every Day Cigarettes 1 30 Smokeless Tobacco: Never Tobacco Cessation:Ready to Q uit: Yes; Counseling Given: Yes Alcohol Use Standard Drinks/Week Comments Yes 0 (1 standard drink = 0.6 oz pur e alcohol) socially [employer] Utilities Answer Date Recorded In the past 12 months has th e electric, gas, oil, or water company threatened to shut off services in your home? No 07/13/2023 Social Connection and Isolat ion Panel [NHANES] Answer Date Recorded In a typical week, how many times do you talk on the phone with family, friends, or neighbors? More than three times a week 07/13/2023 How often do you get togethe r with friends or relatives? Once a week 07/13/2023 How often do you attend chur ch or yazidism services? Never 07/13/2023 Do you belong to any clubs o r organizations such as congregation groups, unions, fraternal or athletic groups, or school groups? No 07/13/2023 How often do you attend meet ings of the clubs or organizations you belong to? Never 07/13/2023 Are you , , di vorced, , never , or living with a partner? 07/13/2023 AUDIT-C Answer Date Recorded Q1: How often do you have a drink containing alc ohol? Monthly or less 07/13/2023 Q2: How many drinks containi ng alcohol do you have on a typical day when you are drinking? 1 or 2 07/13/2023 Q3: How often do you have si x or more drinks on one occasion? Never 07/13/2023 Overall Financial Resource Strain (CARDIA) Answe r Date Recorded How hard is it for you to pa y for the very basics like food, housing, medical care, and heating? Not hard at all 07/13/2023 [facility] of Occupat ional Health - Occupational Stress Questionnaire Answer Date Recorded Do you feel stress - tense, restless, nervous, or anxious, or unable to sleep at night because your mind is troubled all the time - these days? Only a little 07/13/2023 Exercise Vital Sign Answer Date Recorde d On average, how many days pe r week do you engage in moderate to strenuous exercise (like a brisk walk)? 0 days 07/13/2023 On average, how many minutes do you engage in exercise at this level? 0 min 07/13/2023 Hunger Vital Sign Answer Date Recorded Within the past 12 months, y ou worried that your food would run out before you got the money to buy more. Never true 07/13/19 24 Within the past 12 months, t he food you bought just didn't last and you didn't have money to get more. Never true 07/13/2023 PRAPARE - Transportation Answer Date Re corded In the past 12 months, has l ack of transportation kept you from medical appointments or from getting medications? No 06/16 In the past 12 months, has l ack of transportation kept you from meetings, work, or from getting things needed for daily living? No 07/13/2023 Housing Stability Vital Sign Answer Ramiro e Recorded In the last 12 months, was t here a time when you were not able to pay the mortgage or rent on time? No 07/13/2023 In the last 12 months, how many places have you lived? 1 07/13/2023 In the last 12 months, was t here a time when you did not have a steady place to sleep or slept in a jail (including now)? No 07/13/2023 Comments Unknown Sex and Gender Information Value Date Recorded Sex Assigned at Female 07/13/2023 5:06 PM CDT Legal Sex Female 1:24 PM CDT Gender Identity Female 07/13/2023 5:06 PM CDT Sexual Orientation Not on file Last Filed Vital Signs Vital Sign Reading Time Taken Comments Blood Pressure 143/77 07/16/2023 8:00 AM CDT Pulse 57 07/16/2023 8:00 AM CDT Temperature 35.8 C (96.5 F) 07/16/2023 9:00 AM CDT Respiratory Rate 16 07/16/2023 8:00 AM CDT Oxygen Saturation 91% 07/16/2023 8:00 AM CDT Inhaled Oxygen Concentration - - Weight 62 kg (136 lb 11.2 oz) 07/13/2023 10:01 P M CDT Height 165.1 cm (5' 5 ) 07/13/2023 10:01 PM CDT Body Mass Index 22.75 07/13/2023 10:01 PM CDT Plan of Treatment Health Maintenance Due Date Last Done Comments DEXA Bone Density 1955 Hepatitis C Virus (HCV) Screening 1955 Mammogram 1955 TdaP Immunization 1955 Pneumococcal Immunization (5 0+ years) (1 of 2 - PCV) 1976 Cologuard 07/23/2007 Immunochemical Fecal Occult Blood 07/23/2007 Lung Cancer Screening 07/23/2007 Zoster Immunization (1 of 2) 07/23/2007 Respiratory Syncytial Virus (RSV) Immunization (Adult) (1 - Risk 60-74 years 1-dose series) 2017 Colonoscopy 04/21/2022 04/21/2017, 09/11/2016 Colorectal Cancer Screening 04/21/2022 Influenza Immunization (#1) 2023 SARS-COV-2 Immunization ( season) 2023 04/20/2020 04/21/2017, 09/11/2016 Hepatitis B Immunization Aged Out No longer eligible based on patient's age to complete this topic Meningococcal Immunization (ACWY) Aged Out No longer eligible b ased on patient's age to complete this topic Rotavirus Immunization Aged Out No lo nger eligible based on patient's age to complete this topic Insurance [facility] Advance Directives * Full Code (Latest Code Status on File) Date Activated Date Inactivated Comments 07/13/2023 9:42 PM 07/16/2023 12:48 PM CPR-Full Tr eatment: FULL ARREST: Attempt Resuscitation/CPR wit intubation and mechanical ventilation. PRE-ARREST: Use entire range of life support measures to stabilize the patient. Care Teams Supervising Bailiff Relationship Specialty Start Date End Date Lulu Benz MD [address] [place] [address] PCP - General Family Medicine 07/13/23
[2024-05-24 14:40] LABS: Alanine Aminotransferase 18 U/L (6-35); Albumin Level 4.5 g/dL (3.5-5.1); Alkaline Phosphatase 77 U/L (38-126); Anion Gap 10 mmol/L (4-12); Aspartate Amino Transferase 19 U/L (14-36); Bilirubin,Total 0.6 mg/dL (0.2-1.3); Blood Urea Nitrogen 10 mg/dL (7-17); Calcium 9.2 mg/dL (8.4-10.2); Carbon Dioxide 26 mmol/L (22-30); Chloride 104 mmol/L (98-107); Estimated Glomerular Filt Rate > 60; Glucose 88 mg/dL (65-110); Magnesium 2.1 mg/dL (1.6-2.3); Phosphorus 3.5 mg/dL (2.5-4.5); Potassium 3.5 mmol/L (3.4-5.0); Sodium 140 mmol/L (137-145)
[2024-05-24 16:12] LABS: Parathyroid Intact 87.8 pg/mL (14.5-75.2)
[2024-05-24 19:04] LABS: Vitamin D 25 Hydroxy 54.3 ng/mL
[2024-05-25 07:03] LABS: Protein, Total 6.8 g/dL (6.1-8.1)
[2024-05-26 23:14] LABS: Albumin 4.1 g/dL (3.8-4.8); Alpha 1 Globulin 0.3 g/dL (0.2-0.3); Alpha 2 Globulin 0.8 g/dL (0.5-0.9); Beta 1 Globulin 0.5 g/dL (0.4-0.6); Gamma Globulin 0.9 g/dL (0.8-1.7)
[2024-05-29 14:38] LABS: Immunoglobulin A 189 mg/dL (70-320); TTG IGA AB <1.0 U/mL
== END 2024-05-24 12:37 | disposition home or self-care (01) ==
LOC: ANHIMG 12:43
PROVIDERS: PCP Family Medicine; Visit Provider Internal Medicine
DX: M81.0 Age-related osteoporosis without current pathological fracture (principal); I10 Essential (primary) hypertension; I25.10 Atherosclerotic heart disease of native coronary artery without angina pectoris; I48.91 Unspecified atrial fibrillation; N20.0 Calculus of kidney; R82.81 Pyuria
CPT/HCPCS: 36415; 73521; 80053; 82306; 82784; 83516; 83735; 83970; 84100; 84155; 84165; 84439; 84443; 84681

== ENCOUNTER 2024-05-26 13:07 | Outpatient (CLI) | payer BC, SELFPAY ==
--- OUTSIDE RECORDS SUMMARY | 2024-05-26 13:09 | XMS_ITS | Clinical Summary ---
Author Organization [facility] Address [address] [place] [id number] Phone Care Team Providers Care Regional Vice President Life Sales Name Role Phone Taye Ko MD Primary Care Provider [phone] Allergies Active Allergy Reactions Criticality Noted Date [...] (06/16/2021): Added automatically from request for surgery [id number] Immunizations Immunization Administration Dates Next Due Influenza [...] 1976 Influenza Vaccine (Season Ended) 2024 Insurance * Guarantor: Jazmine Ortega Account Type Relation to Patient Date of Phone Billing Address Personal/Family Self [address] [place] [address] Care Teams Regional Vice President Life Sales Relationship Specialty Start Date End Date Taye Ko MD PCP - General Family Medicine 05/22/21
--- OUTSIDE RECORDS SUMMARY | 2024-05-26 13:09 | XMS_ITS | Clinical Summary ---
Author Organization [facility] Address [address] [place] [address] Care Team Providers Care Sheet Metal Assembler And Riveter Name Role Phone Kevin Sheets MD Unavailable [phone] Lulu Benz MD Primary Care Provider [phone] Allergies Active Allergy Reactions Criticality Noted Date [...] Diagnosed Date Hyperlipidemia 07/18/2021 Current use of vermin exterminator anticoagulation 022 Essential hypertension 07/24/2019 Assessment & Plan (07/24/2019 2:00 PM CDT): Will increase Hydralazine to 100mg BID Atrial flutter (CMS/HCC) 09/03/2018 Overview (09/05/2018): Added automatically from request for surgery [id number] Surgical History Surgery Date Site/Laterality Comments CARDIAC [...] on file Legal 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 Gender Identity Not on file Sexual Orientation [...] 2022 Influenza Vaccine (Season Ended) 2024 Insurance [facility] Advance Directives For more information, please contact: [phone] * Full Code (Latest Code Status on File) Date Activated Date Inactivated Comments 09/03/2018 10:40 PM 09/06/2018 7:28 PM * Full Code Date Activated Date Inactivated Comments 09/03/2018 7:51 PM 09/03/2018 10:40 PM Care Teams Sheet Metal Assembler And Riveter Relationship Specialty Start Date End Date Lulu Benz MD PCP - General Family Medicine 07/12/20 Kevin Sheets MD Consulting Physician Cardiology 09/06/18
--- OUTSIDE RECORDS SUMMARY | 2024-05-26 13:09 | XMS_ITS | Referral Summary ---
Author Organization [facility] Address [address] [place] [address] Care Team Providers Care Study Hall Supervisor Name Role Phone Kevin Sheets MD Unavailable [phone] Lulu Benz MD Primary Care Provider [phone] Allergies Active Allergy Reactions Criticality Noted Date [...] Diagnosed Date Hyperlipidemia 07/18/2021 Current use of equipment operator intermodal yard anticoagulation 022 Essential hypertension 07/24/2019 Assessment & Plan (07/24/2019 2:00 PM CDT): Will increase Hydralazine to 100mg BID Atrial flutter (CMS/HCC) 09/03/2018 Overview (09/05/2018): Added automatically from request for surgery [id number] Social History Tobacco Use Types Packs/Day Years [...] on file 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 Gender Identity Not on file Sexual Orientation [...] Plan of Treatment Not on file Insurance [facility] Advance Directives For more information, please contact: [phone] * Full Code (Latest Code Status on File) Date Activated Date Inactivated Comments 09/03/2018 10:40 PM 09/06/2018 7:28 PM * Full Code Date Activated Date Inactivated Comments 09/03/2018 7:51 PM 09/03/2018 10:40 PM Care Teams Study Hall Supervisor Relationship Specialty Start Date End Date Lulu Benz MD PCP - General Family Medicine 07/12/20 Kevin Sheets MD Consulting Physician Cardiology 09/06/18
--- OUTSIDE RECORDS SUMMARY | 2024-05-26 13:09 | XMS_ITS | Clinical Summary ---
Author Organization [facility] Address [address] [address] Phone Care Team Providers Care Archivist Name Role Phone Lulu Benz MD Primary Care Provider Allergies Active Allergy Reactions Criticality Noted Date [...] = 0.6 oz pur e alcohol) socially [employer] Answer Date Recorded In the past [...] often do you attend chur ch or jew services? Never 07/13/2023 Do you belong to any clubs o r organizations such as moravian groups, unions, fraternal or athletic groups, or [...] and heating? Not hard at all 07/13/2023 [facility] of Occupat ional Health - Occupational Stress [...] place to sleep or slept in a chcf (including now)? No 07/13/2023 Comments Unknown Sex [...] patient's age to complete this topic Insurance [facility] Advance Directives * Full Code (Latest Code Status on File) Date Activated Date Inactivated Comments 07/13/2023 9:42 PM 07/16/2023 12:48 PM CPR-Full Tr eatment: FULL ARREST: Attempt Resuscitation/CPR wit intubation and mechanical ventilation. PRE-ARREST: Use entire range of life support measures to stabilize the patient. Care Teams Archivist Relationship Specialty Start Date End Date Lulu Benz MD [address] [place] [address] PCP - General Family Medicine 07/13/23
[2024-05-26 13:54] LABS: Total Volume 24 Hour Urine 1650 ml
[2024-05-26 14:10] LABS: Creatinine 24 Hour Urine 0.7 gm/24 (0.8-1.8); Creatinine Urine 43.4 mg/dL
== END 2024-05-26 13:08 | disposition home or self-care (01) ==
LOC: ANHLAB 13:08
PROVIDERS: PCP Family Medicine; Visit Provider Internal Medicine
DX: N20.0 Calculus of kidney (principal)
CPT/HCPCS: 81050; 82340; 82570

== ENCOUNTER 2024-08-21 15:56 | Outpatient (CLI) | payer BC, SELFPAY ==
--- NOTE | ~2024-08-21 | CT_ITS ---
CT Scan of the Chest without Contrast: Clinical Indication: Nonspecific abnormal finding of lung field Technique: Contiguous sections were acquired throughout the chest without intravenous contrast. Dose reduction technique was used on this scan by utilizing automated exposure control and iterative recon struction technique. The dose-length product (DLP) was 145.05 mGy-cm. COMPARISON: 02/17/2024 Findings: There is no evidence of any significant mediastinal, hilar or axillary lymphadenopathy. There are ath erosclerotic calcifications of the aorta and coronary arteries. There is no evidence of pleural or pericardial effusion. Advanced emphysema present. Stable chronic scarring or interstitial change versus pseudocavitary lesi on in the peripheral right upper lobe (axial image 28 for example). Stable additional area of cavitar y lesion or change in the left upper lobe (axial image 51). Small irregular nodule present in the rig ht middle lobe medially (axial image 72). Stable irregular left lower lobe nonsegmental lesion (axial image 85). Images through the upper abdomen reveal no abnormalities. Impression: Stable irregular cystic/cavitary lesions in the lungs bilaterally, as detailed above. Lesions could r eflect postinflammatory change/scarring versus the possibility of multifocal bronchoalveolar cell car cinoma. Underlying moderate to severe emphysema. Reviewed, dictated and finalized at location M. Impression: Stable irregular cystic/cavitary lesions in the lungs bilaterally, as detailed above. Lesions could reflect postinflammatory change/scarring versus the possib ility of multifocal bronchoalveolar cell carcinoma. Underlying moderate to severe emphysema.
--- OUTSIDE RECORDS SUMMARY | 2024-08-21 16:04 | XMS_ITS | Clinical Summary ---
Author Organization [facility] Address [address] [place] [address] Phone Care Team Providers Care Appliance Painter And Refinisher Name Role Phone Taye Ko MD Primary Care Provider [phone] Allergies Active Allergy Reactions Criticality Noted Date [...] (06/16/2021): Added automatically from request for surgery [id number] Immunizations Immunization Administration Dates Next Due Influenza [...] 9:39 AM CDT Height 170.2 cm (5' 7) 12/17/2021 9:39 AM CDT Body Mass Index 20.67 12/17/2021 9:39 AM CDT Plan of Treatment Health Maintenance Due Date Last Done Comments Pneumococcal PPSV23/PCV13 65 + Years / Low and Medium Risk (1 of 2 - PCV) 07/23/2007 Influenza Vaccine (#1) 2024 Insurance Care Teams Appliance Painter And Refinisher Relationship Specialty Start Date End Date Taye Ko MD PCP - General Family Medicine 05/22/21
--- OUTSIDE RECORDS SUMMARY | 2024-08-21 16:04 | XMS_ITS | Clinical Summary ---
Author Organization [facility] Address [address] [address] Phone Care Team Providers Care Assistant Softball Coach Name Role Phone Lulu Benz MD Primary Care Provider [phone] Allergies Active Allergy Reactions Criticality Noted Date [...] = 0.6 oz pur e alcohol) socially Answer.[employer] Utilities Answer Date Recorded In the past 12 months has e electric, gas, oil, or water company threatened to shut off services in your home? No 07/13/2023 Social Connection and Isolation Panel Answer Date Recorded In a typical week, how many times do you talk on the phone with family, friends, or neighbors? More than three times a week 07/13/2023 How often do you get togethe r with friends or relatives? Once a week 07/13/2023 How often do you attend chur ch or judaism services? Never 07/13/2023 Do you belong to any clubs o r organizations such as adventism groups, unions, fraternal or athletic groups, or [...] and heating? Not hard at all 07/13/2023 [facility] of Occupat ional Health - Occupational Stress [...] place to sleep or slept in a longterm (including now)? No 07/13/2023 Comments Unknown Sex [...] P M CDT Height 165.1 cm (5' 5) 07/13/2023 10:01 PM CDT Body Mass Index 22.75 07/13/2023 10:01 PM CDT Plan of Treatment Health Maintenance Due Date Last Done Comments DEXA Bone Density 1955 Hepatitis C Virus (HCV) Screening 1955 Mammogram 1955 TdaP Immunization 1955 Pneumococcal Immunization (5 0+ years) (1 of 2 - PCV) 1976 Cologuard 2002 Immunochemical Fecal Occult Blood 2002 Zoster Immunization (1 of 2) 07/23/2007 Respiratory Syncytial Virus (RSV) Immunization (Adult) (1 - Risk 60-74 years 1-dose series) 2017 Colonoscopy 04/21/2022 04/21/2017, 09/11/2016 Colorectal Cancer Screening 04/21/2022 SARS-COV-2 Immunization (2 - season) 2023 04/20/2020 Influenza Immunization (Seas on Ended) 2024 Hepatitis B Immunization Aged Out No longer eligible based on patient's age to complete this topic Human Papillomavirus (HPV) Immunization Aged Out No longer eligible b ased on patient's age to complete this topic Meningococcal Immunization (ACWY) Aged Out No longer eligible b ased on patient's age to complete this topic Rotavirus Immunization Aged Out No lo nger eligible based on patient's age to complete this topic Insurance [facility] Advance Directives * Full Code (Latest Code Status on File) Date Activated Date Inactivated Comments 07/13/2023 9:42 PM 07/16/2023 12:48 PM CPR-Full Tr eatment: FULL ARREST: Attempt Resuscitation/CPR wit intubation and mechanical ventilation. PRE-ARREST: Use entire range of life support measures to stabilize the patient. Care Teams Assistant Softball Coach Relationship Specialty Start Date End Date Lulu Benz MD [address] [place] [address] PCP - General Family Medicine 07/13/23
--- OUTSIDE RECORDS SUMMARY | 2024-08-21 16:04 | XMS_ITS | Clinical Summary ---
Author Organization [facility] Address [address] [place] [address] Care Team Providers Care Automotive Electrician Name Role Phone Kevin Sheets MD Unavailable [phone] Lulu Benz MD Primary Care Provider [phone] Allergies Active Allergy Reactions Criticality Noted Date Comments Amiloride Hives Medium 12/17/2021 Lisinopril Hives Medium 12/17/2021 Losartan Hives Medium 12/17/2021 Tramadol Hives Medium 12/17/2021 Medications rivaroxaban (XARELTO) 20 mg tablet 1 tablet (20 mg total) daily Active Stiolto Respimat 2.5-2.5 mcg/actuation inhaler Inhale 1 puff 2 (two) times a day 07/13/2021 Active amLODIPine (NORVASC) 5 mg tablet Take 1 tablet (5 mg total) by mouth daily 90 tablet 3 10/12/2023 Active dronedarone (MULTAQ) 400 mg tablet Take 1 tablet (400 mg total) by mouth 2 (two) times a day with meals 180 tablet 3 10/12/2023 Active atorvastatin (LIPITOR) 20 mg tablet Take 1 tablet (20 mg total) by mouth nightly 90 tablet 05/23/2024 Active Active Problems Problem Noted Date Diagnosed Date Hyperlipidemia 07/18/2021 Current use of alf anticoagulation 022 Essential hypertension 07/24/2019 Assessment & Plan (07/24/2019 2:00 PM CDT): Will increase Hydralazine to 100mg BID Atrial flutter (CMS/HCC) 09/03/2018 Overview (09/05/2018): Added automatically from request for surgery [id number] Surgical History Surgery Date Site/Laterality Comments CARDIAC [...] on file 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 Gender Identity Not on file Sexual Orientation [...] 9:31 AM CDT Height 165.1 cm (5' 5) 09/15/2023 9:31 AM CDT Body Mass Index [...] 2022 Influenza Vaccine (Season Ended) 2024 Insurance [facility] Address: [facility] [id number] [place] [address] [facility] Advance Directives For more information, please contact: [phone] * Full Code (Latest Code Status on File) Date Activated Date Inactivated Comments 09/03/2018 10:40 PM 09/06/2018 7:28 PM * Full Code Date Activated Date Inactivated Comments 09/03/2018 7:51 PM 09/03/2018 10:40 PM Care Teams Automotive Electrician Relationship Specialty Start Date End Date Lulu Benz MD PCP - General Family Medicine 07/12/20 Kevin Sheets MD Consulting Physician Cardiology 09/06/18
--- OUTSIDE RECORDS SUMMARY | 2024-08-21 16:04 | XMS_ITS | Referral Summary ---
Author Organization [facility] Address [address] [place] [address] Care Team Providers Care Packing Machine Operator Name Role Phone Kevin Sheets MD Unavailable [phone] Lulu Benz MD Primary Care Provider [phone] Allergies Active Allergy Reactions Criticality Noted Date [...] Diagnosed Date Hyperlipidemia 07/18/2021 Current use of senior living anticoagulation 022 Essential hypertension 07/24/2019 Assessment & Plan (07/24/2019 2:00 PM CDT): Will increase Hydralazine to 100mg BID Atrial flutter (CMS/HCC) 09/03/2018 Overview (09/05/2018): Added automatically from request for surgery [id number] Social History Tobacco Use Types Packs/Day Years [...] on file 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 Gender Identity Not on file Sexual [...] Plan of Treatment Not on file [place] [address] [address] [place] [address] [facility]AL Advance Directives For more information, please contact: [phone] * Full Code (Latest Code Status on File) Date Activated Date Inactivated Comments 09/03/2018 10:40 PM 09/06/2018 7:28 PM * Full Code Date Activated Date Inactivated Comments 09/03/2018 7:51 PM 09/03/2018 10:40 PM Care Teams Packing Machine Operator Relationship Specialty Start Date End Date Lulu Benz MD PCP - General Family Medicine 07/12/20 Kevin Sheets MD Consulting Physician Cardiology 09/06/18
== END 2024-08-21 15:57 | disposition home or self-care (01) ==
PROVIDERS: PCP Family Medicine; Visit Provider Nurse Practitioner Family
DX: R91.8 Other nonspecific abnormal finding of lung field (principal)
CPT/HCPCS: 71250

== ENCOUNTER 2025-01-16 10:13 | Outpatient (CLI) | payer BC, SELFPAY ==
--- NOTE | ~2025-01-16 | PE_ITS ---
EXAMINATION: PET skull to mid thigh DATE: 01/16/2025 12:26 INDICATION: Abnormal findings of lung field TECHNIQUE: Blood glucose level was 113 mg/dL. 10.53 mCi of 18-fluorodeoxyglucose (18-FDG) was administered i.v. Low dose computed tomography (CT) images were acquired from the base of the brain to the proximal thighs for attenuation correction and anatomic localization. Positron emission tomography (PET) images were acquired in the same distribution beginning 66 minutes after injection. Images including fused PET/CT images were reconstructed in axial, coronal, and sagittal planes. Automated exposure control technique was employed. The dose- length product was 483.00mGy-cm. COMPARISON: CT studies dated 08/21/2024, 02/17/2024 and 08/24/2023 FINDINGS: Head/neck: There is symmetric increased activity in the oral cavity, palatine tonsils, parotid glands, submandibular glands, laryngeal muscles and ocular muscles without CT correlate, likely physiologic. No pathologically enlarged cervical lymphadenopathy or suspicious foci of increased FDG uptake in the visualized head or neck. Chest: Severe emphysema. Again seen are a few focal regions of irregular septal and thickening and associated with groundglass opacities or locally more prominent cavitary lung disease scattered throughout both lungs. One of the cavitary lesions in the posterior basilar segment of the left lower lobe which appeared stable on prior CT imaging previously measured approximately 2-2.5 cm and has decreased in size approximately 1.5 cm with new small solid components and with mild increased FDG activity with maximal SUV of 3.7. The remainder of the lesions in both lungs appear stable on CT imaging dating back to 09/03/2023. There is moderate increased FDG uptake with maximal SUV of 7.5 associated with a 3.5 x 2.2 cm region of groundglass opacities and septal line thickening at the right apex which does not appear significant changed on the CT imaging. There is minimal FDG activity with maximal SUV of 1.8 associated with a 3.5 cm cavitary lesion at the junction of the left upper lobe and lingula end maximal SUV of 1.0 associated with an approximately 1.5 cm ill-defined lesion in the superior segment of the left lower lobe. No new or enlarging lesions, pulmonary edema or pleural effusion. Heart size normal. Atherosclerotic coronary artery calcification. No pericardial effusion. Thoracic aorta is normal in caliber. No pathologically enlarged or FDG avid thoracic lymphadenopathy. Abdomen/pelvis/proximal thighs: Physiologic renal accumulation and excretion of FDG activity in the kidneys, bladder and along portions of ureters. Bilateral nonobstructing nephrolithiasis. Normal degree and heterogenous pattern of increased uptake throughout the liver without radiologic correlate or dominant FDG avid lesion. The gallbladder, pancreas, spleen and bilateral adrenal glands are normal. Mild uptake scattered throughout the bowels without radiologic correlate, also likely physiologic. No other abnormal foci of increased FDG uptake or pathologically enlarged lymphadenopathy in the abdomen, pelvis or proximal thighs. Musculoskeletal: Severe lower lumbar spondylosis with grade 1 anterolisthesis L4 on L5. Moderate to severe spondylosis in the thoracic and lower cervical spine with bridging osteophytes at multiple levels consistent with diffuse idiopathic skeletal hyperostosis (DISH). No suspicious lytic, blastic or abnormally FDG avid bone lesions. IMPRESSION: 1. Again seen are multiple ill-defined lesions in both lungs with septal line thickening such with either groundglass opacity or cystic/cavitary lesions one of which appears slightly smaller with new small more solid components and mild associated FDG uptake most likely related to local atelectasis and/or superimposed pneumonia. The second at the right apex also demonstrates moderate associated uptake but which along with the remaining lesions have remained unchanged on CT. The multiplicity and stability the majority of lesions favors a chronic infectious/inflammatory in etiology although differential for any individual lesion would include bronchoalveolar carcinoma. Decision for biopsy should be based upon development of any concerning change on CT imaging. Given the change in appearance of the lesion in the basilar left lower lobe and the increased uptake despite absence of imaging on CT for the right apical nodule would recommend 3 month follow-up CT. Reviewed, dictated and finalized at location A. N RESOURCES BENEFITS ADMINISTRATOR IMPRESSION: 1. Again seen are multiple ill-defined lesions in both lungs with septal line t hickening such with either groundglass opacity or cystic/cavitary lesions one o f which appears slightly smaller with new small more solid components and mild associated FDG uptake most likely related to local atelectasis and/or superimpo sed pneumonia. The second at the right apex also demonstrates moderate associat ed uptake but which along with the remaining lesions have remained unchanged on CT. The multiplicity and stability the majority of lesions favors a chronic in fectious/inflammatory in etiology although differential for any individual lesi on would include bronchoalveolar carcinoma. Decision for biopsy should be based upon development of any concerning change on CT imaging. Given the change in a ppearance of the lesion in the basilar left lower lobe and the increased uptake despite absence of imaging on CT for the right apical nodule would recommend 3 month follow-up CT.
--- OUTSIDE RECORDS SUMMARY | 2025-01-16 11:03 | XMS_ITS | Clinical Summary ---
Author Organization [facility] Address [address] [place] [address] Care Team Providers Care Continuing Education Specialist Name Role Phone Kevin Sheets MD Unavailable [phone] Lulu Benz MD Primary Care Provider [phone] Allergies Active Allergy Reactions Criticality Noted Date Comments Amiloride Hives Medium 12/17/2021 Amoxicillin Hives Medium 09/28/2024 Diltiazem Hives Medium 09/28/2024 Lisinopril Hives Medium 12/17/2021 Losartan Hives Medium 12/17/2021 Nebivolol Hives Medium 09/28/2024 Tramadol Hives Medium 12/17/2021 Medications rivaroxaban (XARELTO) 20 mg tablet Take 1 tablet (20 mg total) by mouth daily Active Stiolto Respimat 2.5-2.5 mcg/actuation inhaler Inhale 1 puff 2 (two) times a day 2 Active amLODIPine (NORVASC) 5 mg tablet Take 1 tablet (5 mg total) by mouth daily 90 tablet 3 4 Active ferrous sulfate 325 mg (65 mg of elemental iron) tabletIndicatio ns:Iron Deficiency Anemia Take 1 tablet (325 mg total) by mouth daily Active albuterol HFA (PROVENTIL HFA,VENTOLIN HFA,PROAIR HFA) 90 mcg/actuation inhaler INHALE 1 PUFF BY MOUTH EVERY 4 HOURS NEEDED FOR SHORTNESS OF BREATH OR WHEEZING 2 Active guaiFENesin ER (MUCINEX) 600 mg 12 hr tablet Take 1 tablet (600 mg total) by mouth 2 (two) times a day for 14 days 28 tablet 5 Active Multaq 400 mg tablet TAKE 1 TABLET(400 MG) BY MOUTH TWICE DAILY WITH MEALS 180 tablet 3 5 Active atorvastatin (LIPITOR) 20 mg tablet TAKE 1 TABLET(20 MG) BY MOUTH EVERY NIGHT 90 tablet 5 Active Active Problems Problem Noted Date Diagnosed Date Hypertensive urgency 09/29/2024 Pneumonia 09/29/2024 Mild protein-calorie malnutrition 09/29/2024 Mild malnutrition 09/29/2024 COPD exacerbation 09/28/2024 Hyperlipidemia 07/18/2021 Current use of prison anticoagulation 022 Essential hypertension 07/24/2019 Assessment & Plan (07/24/2019 2:00 PM CDT): Will increase Hydralazine to 100mg BID Atrial flutter (CMS/HCC) 09/03/2018 Overview (09/05/2018): Added automatically from request for surgery [id number] Surgical History Surgery Date Site/Laterality Comments CARDIAC [...] 0 10/08/2018 Personal Safety Answer Date Recorded Have you ever been in or are you currently in a harmful physical or emotional relationship or is someone making you feel afraid or unsafe? 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 Gender Identity Not on file Sexual Orientation Not on file Last Filed Vital Signs Vital Sign Reading Time Taken Comments Blood Pressure 158/89 09/30/2024 7:21 AM CDT Pulse 74 09/30/2024 8:13 AM CDT Temperature 36.1 C (97 F) 09/30/2024 7:21 AM CDT Respiratory Rate 20 09/30/2024 8:13 AM CDT Oxygen Saturation 92% 09/30/2024 8:13 AM CDT Inhaled Oxygen Concentration - - Weight 51.8 kg (114 lb 3.2 oz) 09/28/2024 9:53 P M CDT Height 165.1 cm (5' 5) 09/28/2024 9:53 PM CDT Body Mass Index 19 09/28/2024 9:53 PM CDT Plan of Treatment Health Maintenance Due Date Last Done Comments Breast Cancer Screening-Mammogram 1957 Colon Cancer Screening-Colonoscopy 1955 Hepatitis C Screening 1957 Osteoporosis Screening-Bone Density Scan 1957 DTaP/Tdap/Td Vaccine (1 - Tdap) 1968 Hepatitis B Screening 07/23/1975 Pneumococcal vaccine 65+ (1 of 2 - PCV) 1976 Zoster Vaccine (1 of 2) 07/23/2007 Depression Screening 09/04/2019 09/03/2018, 09/04/19 Well Visit 65+ 2022 Influenza Vaccine (#1) 2024 Fall Risk Assessment 09/30/2025 09/30/2024 Insurance [facility] [employer] Advance Directives For more information, please contact: [phone] * Full Code (Latest Code Status on File) Date Activated Date Inactivated Comments 09/28/2024 8:56 PM 09/30/2024 3:49 PM * Full Code Date Activated Date Inactivated Comments 09/03/2018 10:40 PM 09/06/2018 7:28 PM * Full Code Date Activated Date Inactivated Comments 09/03/2018 7:51 PM 09/03/2018 10:40 PM Care Teams Continuing Education Specialist Relationship Specialty Start Date End Date Lulu Benz MD PCP - General Family Medicine 07/12/20 Kevin Sheets MD Consulting Physician Cardiology 09/06/18
--- OUTSIDE RECORDS SUMMARY | 2025-01-16 11:03 | XMS_ITS | Clinical Summary ---
Author Organization [facility] Address [address] [address] Phone Care Team Providers Care Skills Instructor Name Role Phone Lulu Benz MD Primary Care Provider [phone] Allergies Active Allergy Reactions Criticality Noted Date [...] = 0.6 oz pur e alcohol) socially [employer] Utilities Answer Date Recorded In the past [...] often do you attend chur ch or christianity services? Never 07/13/2023 Do you belong to any clubs o r organizations such as religion groups, unions, fraternal or athletic groups, or [...] and heating? Not hard at all 07/13/2023 [facility] [place] [facility] - Occupational Stress [...] place to sleep or slept in a long term (including now)? No 07/13/2023 Comments Unknown Sex [...] Cologuard 2002 Immunochemical Fecal Occult Blood 2002 Respiratory Syncytial Virus (RSV) Immunization (Adult) (1 - Risk 50-74 years 1-dose series) 07/23/2007 Zoster Immunization (1 of 2) 07/23/2007 Colonoscopy 04/21/2022 04/21/2017, 09/11/2016 Colorectal Cancer Screening 04/21/2022 Influenza Immunization (#1) 2024 SARS-COV-2 Immunization (2 - 2024- season) 2024 04/20/2020 Hepatitis B Immunization Aged Out No longer [...] patient's age to complete this topic Insurance [facility] Advance Directives * Full Code (Latest Code Status on File) Date Activated Date Inactivated Comments 07/13/2023 9:42 PM 07/16/2023 12:48 PM CPR-Full Tr eatment: FULL ARREST: Attempt Resuscitation/CPR wit intubation and mechanical ventilation. PRE-ARREST: Use entire range of life support measures to stabilize the patient. Care Teams Skills Instructor Relationship Specialty Start Date End Date Lulu Benz MD [address] [place] [address] PCP - General Family Medicine 07/13/23
== END 2025-01-16 10:14 | disposition home or self-care (01) ==
PROVIDERS: PCP Family Medicine; Visit Provider Nurse Practitioner Family
DX: R91.8 Other nonspecific abnormal finding of lung field (principal)
CPT/HCPCS: 78815; A9552